=== PATIENT | female | born 1995 ===

== ENCOUNTER 2017-11-02 01:06 | Emergency (ER) | payer MEDICAID, OTHER ==
[2017-11-02 01:07] VITALS: BMI 20.5
--- NOTE | 2017-11-02 01:23 | C.PDOC ---
History Of Present Illness 22 year old female presents to the ER with a complaint of an itchy rash that began a few hours ago. Patient states the rash initially started at the neck and spread out. 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 Denies difficulty breathing or difficulty swallowing. Patient notes the only thing she believes might have caused this was a new beer she tried. Time Seen by Provider: 11/02/17 01:18 Chief Complaint (Nursing): Allergic Reaction History Per: Patient History/Exam Limitations: no limitations Onset/Duration Of Symptoms: Hrs Current Symptoms Are (Timing): Still Present Possible Cause: Food Associated Symptoms: Skin Rash. denies: Dyspnea, Trouble Swallowing Home/EMS Treatment: Benadryl Recent travel outside of the [place]: No Past Medical History Reviewed: Historical Data, Nursing Documentation, Vital Signs Vital Signs: Last Vital Signs Temp 98.3 F 11/02/17 02:41 Pulse 90 11/02/17 02:41 Resp 22 11/02/17 02:41 BP 96/65 L 11/02/17 02:41 Pulse Ox 100 11/02/17 02:41 Family History: States: Unknown Family Hx - Social History Hx Tobacco Use: No Hx Alcohol Use: Yes Hx Substance Use: No - Immunization History Hx Tetanus Toxoid Vaccination: No Hx Influenza Vaccination: No Hx Pneumococcal Vaccination: No Review Of Systems Constitutional: Negative for: Fever, Chills ENT: Negative for: Throat Swelling Respiratory: Negative for: Shortness of Breath, Wheezing Skin: Positive for: Rash Physical Exam - Physical Exam Appears: Non-toxic Skin: Warm, Dry, Rash (Erythematous urticaria to anterior neck, upper chest, abdomen, and back. No facial involvement.) Head: Atraumatic, Normacephalic Eye(s): bilateral: Normal Inspection Oral Mucosa: Moist Tongue: Normal Appearing, No Swelling Lips: Normal Appearing, No Swelling Throat: Normal, No Erythema, No Exudate Neck: Normal, Supple Chest: Symmetrical, No Tenderness Cardiovascular: Rhythm Regular Respiratory: Normal Breath Sounds, No Accessory Muscle Use, No Stridor, No Wheezing Gastrointestinal/Abdominal: Soft, No Tenderness Neurological/Psych: Oriented x3, Normal Speech Medical Decision Making Medical Decision Making: Impression: 22 year old female with allergic reaction. Plan: * Benadryl * Solumedrol On re-examination, patient is resting comfortably in no acute distress. Patient reports improvement of symptoms. Rash appears better and is resolving. Patient has clear lungs and no intraoral involvement. Patient feels comfortable going home and will be discharged. Patient given follow up instructions. Instructed to return to ER if symptoms worsen or new symptoms arise. Disposition Counseled Patient/Family Regarding: Diagnosis, Need For Followup - Disposition Disposition: HOME/ ROUTINE Disposition Time: 02:30 Condition: IMPROVED Additional Instructions: Continue with Benadryl 1-2 pills every 4-6 hours for rash and itching Avoid potential allergens Instructions: Hives (DC) Forms: [facility] (Bulgarian), Work Excuse - POA Present On Arrival: None - Clinical Impression Clinical Impression: Urticaria - PA / CLINICAL RESEARCH PHYSICIAN / Resident Statement MD/DO has reviewed & agrees with the documentation as recorded. - Scribe Statement The provider has reviewed the documentation as recorded by the Scribe Sloan Donis All medical record entries made by the Scribe were at my direction and personally dictated by me. I have reviewed the chart and agree that the record accurately reflects my personal performance of the history, physical exam, medical decision making, and the department course for this patient. I have also personally directed, reviewed, and agree with the discharge instructions and disposition.
[2017-11-02] MEDS ORDERED: DiphenhydrAMINE 50 mg/ml Inj IVP STA (01:32)
[2017-11-02] MEDS ORDERED: MethylPREDNISolone 40 mg Vial IVP STA (01:32)
[2017-11-02] MEDS ORDERED: DiphenhydrAMINE 50 mg/ml Inj ONE (01:38)
[2017-11-02] MEDS ORDERED: MethylPREDNISolone 40 mg Vial ONE (01:38)
[2017-11-02 03:10] VITALS: BP 96/65; PULSE 90; RESP 22; TEMP 98.3; O2SAT 100
== END 2017-11-02 02:41 | disposition home or self-care (01) ==
LOC: C.ER 01:06
DX: L50.9 Urticaria, unspecified (principal)
CPT/HCPCS: 96374; 96375; 99285; J1200; J2920

== ENCOUNTER 2018-04-18 08:45 | Emergency (ER) | payer MEDICAID ==
[2018-04-18 08:45] VITALS: BMI 20.5
[2018-04-18 09:23] VITALS: RESP 18; O2SAT 98
--- NOTE | 2018-04-18 09:57 | RAD ---
Date of service: 04/18/2018 HISTORY: cp COMPARISON: No prior. TECHNIQUE: Chest PA and lateral FINDINGS: LUNGS: No active pulmonary disease. PLEURA: No significant pleural effusion identified. No pneumothorax apparent. CARDIOVASCULAR: No aortic atherosclerotic calcification present. Normal cardiac size. No pulmonary vascular congestion. OSSEOUS STRUCTURES: No significant abnormalities. VISUALIZED UPPER ABDOMEN: Normal. OTHER FINDINGS: None. IMPRESSION: No active disease.
--- NOTE | 2018-04-18 11:20 | C.PDOC ---
History Of Present Illness 22-year-old female, presents to the emergency department with complaints of chest pain, sore throat and headache for the past few days. Denies fever, nausea/ovmiting. No other complaints at this time Time Seen by Provider: 04/18/18 09:17 Chief Complaint (Nursing): Chest Pain History Per: Patient History/Exam Limitations: no limitations Past Medical History Reviewed: Historical Data, Nursing Documentation, Vital Signs Vital Signs: Last Vital Signs Temp 98.6 F 04/18/18 09:10 Pulse 77 04/18/18 09:10 Resp 18 04/18/18 09:10 BP 106/66 04/18/18 09:10 Pulse Ox 98 04/18/18 09:10 Family History: States: No Known Family Hx - Social History Hx Tobacco Use: No Hx Alcohol Use: Yes Hx Substance Use: No - Immunization History Hx Tetanus Toxoid Vaccination: No Hx Influenza Vaccination: No Hx Pneumococcal Vaccination: No Review Of Systems Constitutional: Negative for: Fever Cardiovascular: Positive for: Chest Pain Respiratory: Positive for: Cough Neurological: Positive for: Headache. Negative for: Weakness, Numbness Physical Exam - Physical Exam Appears: Non-toxic, No Acute Distress Skin: Warm, Dry, No Rash Head: Atraumatic, Normacephalic Eye(s): bilateral: Normal Inspection Nose: Normal Oral Mucosa: Moist Lips: Normal Appearing Neck: Normal ROM Chest: Symmetrical Cardiovascular: Rhythm Regular, No Murmur Respiratory: Normal Breath Sounds, No Accessory Muscle Use Gastrointestinal/Abdominal: Soft, No Tenderness Back: Normal Inspection Extremity: Normal ROM, No Deformity Neurological/Psych: Oriented x3, Normal Speech ED Course And Treatment ECG: Interpreted By Me, Viewed By Me ECG Rhythm: Sinus Rhythm ECG Interpretation: No Acute Changes Rate From EC O2 Sat by Pulse Oximetry: 98 Pulse Ox Interpretation: Normal (RA) Medical Decision Making Medical Decision Making: atypcial pain, no cardiac risk factor. cxr neg. ekg no changes perc neg. strep flu neg. pt on phone in nad. stable for dc/. Disposition - Disposition Referrals: [facility] [Outside] [facility] [Outside] Disposition: HOME/ ROUTINE Disposition Time: 13:00 Condition: STABLE Additional Instructions: follow up with your doctor/clinic. return to er with worsening symptoms or concern. Instructions: Headache, Adult, Chest Pain, Viral Syndrome (DC) Forms: [email or web address] (Eth[place]ian), School Excuse, Work Excuse - Clinical Impression Clinical Impression: Chest pain - Scribe Statement The provider has reviewed the documentation as recorded by the Scribe (Francisco Anna) Provider Attestation: All medical record entries made by the Scribe were at my direction and personally dictated by me. I have reviewed the chart and agree that the record accurately reflects my personal performance of the history, physical exam, medical decision making, and the department course for this patient. I have also personally directed, reviewed, and agree with the discharge instructions and disposition.
[2018-04-18 12:17] LABS: INFLUENZA A B NEGATIVE FOR FLU A/B (NEGATIVE)
[2018-04-18 13:27] VITALS: BP 96/61; PULSE 72; TEMP 98.2
--- NOTE | 2018-04-18 19:31 | CARD ---
APPROVED REPORT Date of service: 04/18/2018 EKG Measurement Heart [id number] <Conclusion> Normal sinus rhythm Possible Left atrial enlargement Borderline ECG
== END 2018-04-18 13:27 | disposition home or self-care (01) ==
LOC: C.ER 08:45
DX: R07.9 Chest pain, unspecified (principal)

== ENCOUNTER 2018-10-31 18:49 | Emergency (ER) | payer MEDICAID ==
[2018-10-31 18:49] VITALS: BMI 20.5
== END 2018-10-31 19:21 | disposition left against medical advice (07) ==
LOC: C.ER 18:49
DX: Z02.89 Encounter for other administrative examinations (principal)